=== PATIENT | female | born 1995 | race African-American/Black ===

== ENCOUNTER 2017-05-21 10:25 | Emergency (ER) | payer SELFPAY ==
[2017-05-21 10:30] VITALS: BP 116/67; PULSE 108; TEMP 97.6; BMI 22.3
--- NOTE | 2017-05-21 11:59 | PDOC ---
History of Present Illness - General Chief Complaint: Headache Stated Complaint: HEADACHE Time Seen by Provider: 05/21/17 10:44 History Source: Patient Exam Limitations: No Limitations - History of Present Illness Initial Comments: 05/21/17 11:54 Patient is a 22-year-old female, history of herpes, presents to emergency department for evaluation of painful mass to left external labia and headache since 2 days. Patient denies any trauma, no photophobia, no visual disturbance, no nausea vomiting. No neurosensory deficits. Past Medical History: Denies. Allergies: No known allergies Medications: None Family History: Non-contributory Social History: Denies smoking, alcohol use, or IVDU Review of Systems GENERAL/CONSTITUTIONAL: No fever or chills. No weakness. No weight change. HEAD, EYES, EARS, NOSE AND THROAT: No change in vision. No ear pain or discharge. No sore throat. CARDIOVASCULAR: No chest pain or shortness of breath. RESPIRATORY: No cough, wheezing, or hemoptysis. GASTROINTESTINAL: No nausea, vomiting, diarrhea or constipation. No rectal bleeding. GENITOURINARY: No dysuria, frequency, or change in urination. MUSCULOSKELETAL: No joint or muscle swelling or pain. No neck or back pain. SKIN AND BREASTS: No rash or easy bruising. NEUROLOGIC: No headache, vertigo, loss of consciousness, or loss of sensation. PSYCHIATRIC: No depression or anxiety. ENDOCRINE: No increased thirst. No abnormal weight change. HEMATOLOGIC/LYMPHATIC: No anemia, easy bleeding, or history of blood clots. ALLERGIC/IMMUNOLOGIC: No hives or skin allergy. No latex allergy. Physical Exam: GENERAL: The patient is awake, alert, and fully oriented, in no acute distress. EYES: Pupils equal, round and reactive to light, extraocular movements intact, sclera anicteric, conjunctiva clear. No nystagmus ENT: Ears normal, nares erythematous, with + frontal and ethmoid sinus pressure , oropharynx clear without exudates. Moist mucous membranes. No uvula deviation. NECK: Normal range of motion, supple without lymphadenopathy, JVD, or masses. LUNGS: Breath sounds equal, clear to auscultation bilaterally. No wheezes, and no crackles. HEART: Regular rate and rhythm, normal S1 and S2 without murmur, rub or gallop. ABDOMEN: Soft, nontender, normoactive bowel sounds. No guarding, no rebound. No masses. No bruising or abrasions GENITALIA: Left sided bartholin cyst. MUSCULOSKELETAL: Normal range of motion, no edema. No clubbing or cyanosis. No cords, erythema, or tenderness. No CVA Tenderness with fist palpation. NEUROLOGICAL: Cranial nerves II through XII grossly intact. Normal speech, normal gait. PSYCH: Normal mood, normal affect. SKIN: Warm, Dry, normal turgor, no rashes or lesions noted. Past History - Past Medical History Allergies/Adverse Reactions: Allergies Allergy/AdvReac Type Severity Reaction Status Date / Time benzocaine [From Anbesol] Allergy Swelling Verified 05/21/17 10:28 phenol [From Anbesol] Allergy Swelling Verified 05/21/17 10:28 povidone-iodine Allergy Swelling Verified 05/21/17 10:28 [From Anbesol] Home Medications: Ambulatory Orders NK [No Known Home Medication] 05/21/17 Asthma: No Cancer: No Cardiac Disorders: No Diabetes: No HTN: No Seizures: No Thyroid Disease: No - Psycho/Social/Smoking Cessation Hx Anxiety: No Suicidal Ideation: No Smoking Status: No Smoking History: Never smoked Have you smoked in the past 12 months: No Number of Cigarettes Smoked Daily: 0 Information on smoking cessation initiated: No Hx Alcohol Use: No Drug/Substance Use Hx: No Substance Use Type: None Hx Substance Use Treatment: No *Physical Exam - Vital Signs Last Vital Signs Temp Pulse Resp BP Pulse Ox 97.6 F 108 H 18 116/67 100 05/21/17 10:29 05/21/17 10:29 05/21/17 10:29 05/21/17 10:29 05/21/17 10:29 Procedures - Incision and Drainage I&D Site: Left: Bartholin Betadine cleansed: Yes Anesthesia: 1% Lidocaine Volume(ml): 4 Blade Size: 15 blade Attempts: 1 Progress: 05/21/17 12:02 Word catheter placed i with good result. Large amount of malodorous, pustulant discharge removed. Medical Decision Making - Medical Decision Making A/P : Patient here with headache and Bartholin's cyst, patient with an acute sinusitis. Has not attempted to take any medication for pain, Toradol 60 mg IM times one given with good result headache was resolved patient denies any neurosensory deficits, no visual disturbance, no photophobia. Patient also here with Bartholin's cyst see procedure note to follow up with [facility] or return in 10 days for catheter removal. DC on Augmentin for sinusitis. I discussed the physical exam findings, ancillary test results and final diagnoses with the patient. I answered all of the patient's questions. The patient was satisfied with the care received and felt comfortable with the discharge plan and treatment plan. The patient will call to arrange follow-up and will return to the Emergency Department with any new, persistent or worsening symptoms. *DC/Admit/Observation/Transfer Diagnosis at time of Disposition: Bartholin cyst Sinusitis Qualifiers: Sinusitis location: frontal Chronicity: acute Recurrence: non-recurrent Qualified Code(s): J01.10 - Acute frontal sinusitis, unspecified - Discharge Dispostion Admit: No - Patient Instructions Printed Discharge Instructions: Bartholin Gland Cyst Additional Instructions: Recommend follow up with [facility] next week. Word catheter may be left in place for 10 days or dependant on what your [facility] says. Antibiotics for for sinus infection. Please The patient should wear a peripad to absorb discharge. You should maintain pelvic rest (ie, nothing in the vagina) while the Word catheter is in place. She should call to be examined if she experiences increasing swelling, pain, vaginal discharge, or fever. Use sitz baths and mild analgesics to treat pain, if present during the first postoperative day or two.
[2017-05-21] MEDS ORDERED: KETOROLAC TROMETHAMINE 60 MG/2 ML VIAL IM ONE (12:06)
[2017-05-21] MEDS ORDERED: KETOROLAC TROMETHAMINE 60 MG/2 ML VIAL ONE (12:11)
== END 2017-05-21 12:31 ==
LOC: JERFT 10:25
CPT/HCPCS: 99281-25

== ENCOUNTER 2017-05-23 00:21 | Emergency (ER) | payer SELFPAY ==
--- NOTE | 2017-05-23 00:44 | PDOC ---
Attending Attestation - Resident Resident Name: Rosanna Richards - ED Attending Attestation I have performed the following: I have examined & evaluated the patient, The case was reviewed & discussed with the resident, I agree w/resident's findings & plan - HPI HPI: 05/23/17 01:44 The patient is a 22 year old female with a significant past medical history of herpes and left bartholin gland cyst I&D (05/21), presenting to the Emergency Department with increased pain around her Word catheter. The patient reports that she was seen in the ED 2 days ago for left labia swelling and was diagnosed with a bartholin gland cyst which was then I&D and a Word catheter was placed. She reports that she has not had the catheter removed, and reports pain at the site of the catheter. She states that the pain has become worse over the day, now at a 7/10 in intensity. She admits to IV antibiotics on 05/21, and malodorous vaginal discharge on 05/21. The patient denies dysuria, or urinary changes. Patient denies vaginal bleeding. Patient denies nausea, vomiting, and diarrhea. Patient denies fevers, chills, and cough. GENERAL/CONSTITUTIONAL: No fever or chills. No weakness. HEAD, EYES, EARS, NOSE AND THROAT: No change in vision. No ear pain or discharge. No sore throat. GASTROINTESTINAL: No nausea, vomiting, diarrhea or constipation. GENITOURINARY: + Word catheter, + vaginal pain at left labia. No dysuria, frequency, or change in urination. CARDIOVASCULAR: No chest pain or shortness of breath. RESPIRATORY: No cough, wheezing, or hemoptysis. MUSCULOSKELETAL: No joint or muscle swelling or pain. No neck or back pain. SKIN: No rash NEUROLOGIC: No headache, vertigo, loss of consciousness, or change in strength/ sensation. ENDOCRINE: No increased thirst. No abnormal weight change. HEMATOLOGIC/LYMPHATIC: No anemia, easy bleeding, or history of blood clots. ALLERGIC/IMMUNOLOGIC: No hives or skin allergy. - Medical Decision Making 05/23/17 01:45 Documentation prepared by Hanh Vicente, acting as medical laboratory technicians for Lissa Molina MD. <Hanh Vicente - Last Filed: 05/23/17 01:44> - Resident Resident Name: Rosanna Richards - ED Attending Attestation I have performed the following: I have examined & evaluated the patient, The case was reviewed & discussed with the resident, I agree w/resident's findings & plan, Exceptions are as noted - Physicial Exam PE: GENERAL: Awake, alert, and fully oriented, in no acute distress LUNGS: Breath sounds equal, clear to auscultation bilaterally. No wheezes, and no crackles HEART: Regular rate and rhythm, normal S1 and S2, no murmurs, rubs or gallops ABDOMEN: Soft, nontender, normoactive bowel sounds. No guarding, no rebound. No masses SKIN: Warm, Dry, normal turgor, no rashes or lesions noted. : Word catheter present to L labia. No active drainage from the area, no induration, no erythema. - Medical Decision Making Word catheter removed due to significant patient discomfort. She reports relief. Stable for DC home. <Lissa Molina - Last Filed: 05/23/17 02:30>
--- NOTE | 2017-05-23 01:00 | PDOC ---
History of Present Illness - General Chief Complaint: Pain Stated Complaint: REVISIT Time Seen by Provider: 05/23/17 00:43 History Source: Patient Exam Limitations: No Limitations - History of Present Illness Initial Comments: This is a 22 yo female with h/o Bartholin cyst who presents for wound re-check. She was in the ED yesterday morning for an I&D of her left Bartholin cyst, and she has been having increasing pain at the site of the Word catheter since that time. She notes a 7/10 pressure-like pain to the site which is worsened by walking and sitting. She tried taking Motrin as directed, but this has provided her with no relief. She denies any fever, chills, nausea, vomiting, diarrhea, dysuria, rash, vaginal bleeding, or vaginal discharge. She has not noticed any drainage from the Word catheter since yesterday. She denies any chance that she may be . She originally planned to follow up with her [facility] office early next week, but her pain became too great this evening to tolerate. 05/24/17 17:44 Past History - Past Medical History Allergies/Adverse Reactions: Allergies Allergy/AdvReac Type Severity Reaction Status Date / Time benzocaine [From Anbesol] Allergy Swelling Verified 05/21/17 10:28 phenol [From Anbesol] Allergy Swelling Verified 05/21/17 10:28 povidone-iodine Allergy Swelling Verified 05/21/17 10:28 [From Anbesol] Home Medications: Ambulatory Orders NK [No Known Home Medication] 05/21/17 Asthma: No Cancer: No Cardiac Disorders: No Diabetes: No HTN: No Seizures: No Thyroid Disease: No Other medical history: Pt denies - Psycho/Social/Smoking Cessation Hx Anxiety: No Suicidal Ideation: No Smoking Status: No Smoking History: Never smoked Have you smoked in the past 12 months: No Number of Cigarettes Smoked Daily: 0 Information on smoking cessation initiated: No Hx Alcohol Use: No Drug/Substance Use Hx: No Substance Use Type: None Hx Substance Use Treatment: No Review of Systems - Review of Systems Able to Perform ROS?: Yes Constitutional: No: Chills, Fever, Unexplained wgt Loss HEENTM: No: Nose Congestion, Throat Pain Respiratory: No: Cough, Shortness of Breath Cardiac (ROS): No: Chest Pain, Palpitations ABD/GI: No: Constipated, Diarrhea, Nausea, Vomiting : Yes: Pain. No: Burning, Dysuria Musculoskeletal: No: Back Pain, Neck Pain Integumentary: No: Bruising, Rash Neurological: No: Headache, Numbness, Tingling, Weakness, Dizziness Endocrine: No: Unexplained Weight Gain, Unexplained Weight Loss *Physical Exam - Vital Signs Last Vital Signs Temp Pulse Resp BP Pulse Ox 98.0 F 81 18 101/57 99 05/23/17 00:30 05/23/17 00:30 05/23/17 00:30 05/23/17 00:30 05/23/17 00:30 - Physical Exam General Appearance: Yes: Nourished, Other (well appearing and in no acute distress but sitting in chair leaning off to one side and appears uncomfortable) . No: Apparent Distress HEENT: positive: EOMI, Normal Voice, Hearing Grossly Normal. negative: Scleral Icterus (R), Scleral Icterus (L), Nasal Congestion Neck: positive: Trachea midline, Supple. negative: Tender, Rigid Respiratory/Chest: positive: Lungs Clear, Normal Breath Sounds. negative: Respiratory Distress, Crackles, Rhonchi, Stridor, Wheezing Cardiovascular: positive: Regular Rhythm, Regular Rate. negative: Murmur Female Pelvic Exam: positive: other (mild swelling and tenderness to left labia with Word catheter in place which is tender to light manipulation, minimal drainage noted) Gastrointestinal/Abdominal: positive: Normal Bowel Sounds, Soft. negative: Tender, Organomegaly, Pulsatile Mass, Guarding Musculoskeletal: positive: Normal Inspection. negative: Decreased Range of Motion, Vertebral Tenderness Extremity: positive: Normal Capillary Refill, Normal Inspection, Normal Range of Motion. negative: Tender, Cyanosis Integumentary: positive: Normal Color, Dry, Warm. 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 Medical Decision Making - Medical Decision Making 22 yo female with recent Bartholin cyst I&D p/w Word catheter discomfort. She has tried ibuprofen without relief, has minimal drainage now. Most likely this is simple Word catheter discomfort without further infectious concern. Word catheter is removed as there is minimal further drainage and the patient's pain is relieved. She is appropriate for outpatient management with her [facility]. Return precautions are discussed and the patient will RTED for new/worse sxs. *DC/Admit/Observation/Transfer Diagnosis at time of Disposition: Wound check, abscess - Discharge Dispostion Admit: No - Patient Instructions Printed Discharge Instructions: DI for Bartholin Gland Cyst Additional Instructions: You were seen tonight for a wound re-check of your Bartholin gland abscess because the Word catheter was causing you some discomfort. We did not see a large amount of drainage output from the catheter, and we decided to remove it from the incision site. It looks like you are healing well so far. Please continue to take Motrin as needed for pain, and follow up with your [facility] this week, or return to the emergency room for any new or worsening symptoms. - Attestations Physician Attestion: 05/23/17 01:46 I, Dr. Rosanna Richards, attest that this document has been prepared under my direction and personally reviewed by me in its entirety. I further attest, that it accurately reflects all work, treatment, procedures and medical decision -making performed by me.
[2017-05-23 01:07] VITALS: BP 101/57; PULSE 81; TEMP 98; BMI 24.7
== END 2017-05-23 01:55 ==
LOC: JER 00:21
CPT/HCPCS: 99281-25

== ENCOUNTER 2018-10-21 12:15 | Emergency (ER) | payer SELFPAY ==
[2018-10-21 12:21] VITALS: BP 101/64; PULSE 86; TEMP 98.4; BMI 25.7
--- NOTE | 2018-10-21 13:28 | PDOC ---
History of Present Illness - General Chief Complaint: Abscess Boil Stated Complaint: ABSCESS BOIL Time Seen by Provider: 10/21/18 12:57 History Source: Patient Exam Limitations: No Limitations - History of Present Illness Travel History: No Timing/Duration: reports: constant Quality: reports: mild Past History - Travel Traveled outside of the country in the last 30 days: No Close contact w/someone who was outside of country & ill: No - Past Medical History Allergies/Adverse Reactions: Allergies Allergy/AdvReac Type Severity Reaction Status Date / Time benzocaine [From Anbesol] Allergy Swelling Verified 10/21/18 12:19 phenol [From Anbesol] Allergy Swelling Verified 10/21/18 12:19 povidone-iodine Allergy Swelling Verified 10/21/18 12:19 [From Anbesol] Home Medications: Ambulatory Orders NK [No Known Home Medication] 05/21/17 Asthma: No Cancer: No Cardiac Disorders: No COPD: No Diabetes: No HTN: No Seizures: No Thyroid Disease: No - Immunization History Immunization Up to Date: Yes - Suicide/Smoking/Psychosocial Hx Smoking Status: No Smoking History: Never smoked Have you smoked in the past 12 months: No Number of Cigarettes Smoked Daily: 0 Hx Alcohol Use: No Drug/Substance Use Hx: No Substance Use Type: None Hx Substance Use Treatment: No Review of Systems - Review of Systems Able to Perform ROS?: Yes Is the patient limited Romansh proficient: Yes Constitutional: Yes: Symptoms Reported, See HPI, Malaise HEENTM: No: Symptoms Reported ABD/GI: Yes: Symptoms Reported, See HPI. No: Vomiting : Yes: Symptoms Reported, See HPI, Pain, Lesions Musculoskeletal: No: Symptoms Reported Integumentary: Yes: Symptoms Reported, See HPI, Erythema, Lesions Neurological: No: Symptoms reported All Other Systems: Reviewed and Negative *Physical Exam - Vital Signs Last Vital Signs Temp Pulse Resp BP Pulse Ox 98.4 F 86 16 101/64 99 10/21/18 12:19 10/21/18 12:19 10/21/18 12:19 10/21/18 12:19 10/21/18 12:19 - Physical Exam General Appearance: Yes: Nourished, Appropriately Dressed, Apparent Distress, Mild Distress HEENT: positive: SANYA, Normal ENT Inspection, TMs Normal, Pharynx Normal Neck: positive: Supple. negative: Tender, Lymphadenopathy (R), Lymphadenopathy (L) Respiratory/Chest: positive: Lungs Clear Female Pelvic Exam: positive: lesions (with erythema and tenderness), Bartholin mass Gastrointestinal/Abdominal: positive: Soft. 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, Fully Oriented, Alert, Normal Mood/ Affect, Normal Response Moderate Sedation - Procedure Monitoring Vital Signs: Procedure Monitoring Vital Signs Temperature 98.4 F 10/21/18 12:19 Pulse Rate 86 10/21/18 12:19 Respiratory Rate 16 10/21/18 12:19 Blood Pressure 101/64 10/21/18 12:19 O2 Sat by Pulse Oximetry (%) 99 10/21/18 12:19 Procedures - Incision and Drainage I&D Site: Left: Bartholin (5 cm x 3 cm fluctuant cyst) Betadine cleansed: Yes (,) Anesthesia: 1% Lidocaine Blade Size: 11 Iodinated Packin/ in Complications: none Dressing: Yes Progress Note - Progress Note Progress Note: Bicillin cyst incised and drained large amount of purulent drainage. Patient tolerated well and feels much improved *DC/Admit/Observation/Transfer Diagnosis at time of Disposition: Bartholin cyst - Discharge Dispostion Disposition: HOME Condition at time of disposition: Stable Decision to Admit order: No - Referrals Referrals: Rush Eubanks MD [Primary Care Provider] - - Patient Instructions Printed Discharge Instructions: DI for Incision and Drainage of a Skin Abscess Additional Instructions: Rest, keep area elevated. Avoid strenuous activity or exercise until wound is healed Use hot soaks to area to bring more blood to the surface and encourage drainage May change dressings as needed to keep clean - trying to avoid removal of packing for 2 days. If packing needs to be changed, return to emergency department or with your followup physician for wound care and evaluation and repacking as needed If packing needs to be removed, then in 2 days, while in the shower remove dressing and quickly pull the packing taken out. Allow water from shower to wash area thoroughly for 2-3 minutes, and pat dry upon exit of shower and replace dressing. Change his dressing daily until the wound is completely healed. May use Tylenol or Motrin for mild pain relief Use stronger medications as directed and prescribed Followup with private physician in 2-3 days for wound check Return to emergency Department for worsening swelling, pain, redness, fevers as needed - Post Discharge Activity Forms/Work/School Notes: Back to Work
== END 2018-10-21 14:06 | disposition home or self-care (01) ==
LOC: JERFT 12:15
PROC: 0U9L0ZZ Drainage of Vestibular Gland, Open Approach (ICD-10-PCS; principal; 2018-10-21)
DX: N75.1 Abscess of Bartholin's gland (principal); N75.0 Cyst of Bartholin's gland
CPT/HCPCS: 99281-25

== ENCOUNTER 2019-04-30 08:12 | Emergency (ER) | payer OTHER ==
[2019-04-30 08:29] VITALS: BP 116/69; PULSE 114; TEMP 98.9; BMI 27.4
[2019-04-30] MEDS ORDERED: MECLIZINE HCL 25 MG TABLET (FP) PO ONE (08:44)
[2019-04-30] MEDS ORDERED: KETOROLAC TROMETHAMINE 60 MG/2 ML VIAL IM ONE (08:44)
[2019-04-30] MEDS ORDERED: KETOROLAC TROMETHAMINE 60 MG/2 ML VIAL ONE (08:45)
[2019-04-30] MEDS ORDERED: MECLIZINE HCL 25 MG TABLET (FP) ONE (08:47)
[2019-04-30] MEDS ORDERED: ONDANSETRON *ODT* 4 MG TABLET SL ONE (08:53)
--- NOTE | 2019-04-30 08:53 | PDOC ---
History of Present Illness - General Chief Complaint: Headache Stated Complaint: HEADACHE/DIZZINESS Time Seen by Provider: 04/30/19 08:41 History Source: Patient Exam Limitations: Clinical Condition - History of Present Illness Initial Comments: 04/30/19 09:18 Patient with no significant past medical history present with complaint of 4 day history of headache with nausea and spinning sensation which is worse from getting up from laying position. Patient also reported abscess to left vulvar area which has been worsening for 3 days now. Denies fever, chills, vomiting, chest pain, shortness of breath. Patient did not take anything for symptoms. Patient reported having multiple abscesses in the past and was told by [employer] procedure needed to be done to prevent recurrent abscess but needing your [employer] to follow-up. Denies any other symptoms Timing/Duration: other (4 days) Past History - Past Medical History Allergies/Adverse Reactions: Allergies Allergy/AdvReac Type Severity Reaction Status Date / Time benzocaine [From Anbesol] Allergy Swelling Verified 04/30/19 08:26 phenol [From Anbesol] Allergy Swelling Verified 04/30/19 08:26 Home Medications: Ambulatory Orders Cephalexin Monohydrate [Keflex -] 500 mg PO BID 7 Days #14 capsule 04/30/19 Ibuprofen 800 mg PO Q8H PRN #20 tablet 04/30/19 Meclizine HCl [Antivert -] 25 mg PO Q8H PRN #21 tablet 04/30/19 Sulfamethoxazole/Trimethoprim [Bactrim Ds -] 1 tab PO BID #14 tablet 04/30/19 Asthma: No Cancer: No Cardiac Disorders: No COPD: No Diabetes: No HTN: No Seizures: No Thyroid Disease: No - Immunization History Immunization Up to Date: Yes - Suicide/Smoking/Psychosocial Hx Smoking Status: No Smoking History: Never smoked Have you smoked in the past 12 months: No Number of Cigarettes Smoked Daily: 0 Hx Alcohol Use: No Drug/Substance Use Hx: No Substance Use Type: None Hx Substance Use Treatment: No Review of Systems - Review of Systems Able to Perform ROS?: Yes Is the patient limited Cymraes proficient: No Constitutional: No: Chills, Fever, Weakness HEENTM: Yes: Symptoms Reported, See HPI, Recent change in vision (spinning sensation). No: Eye Pain, Blurred Vision, Tearing, Double Vision, Cataracts, Ear Pain, Ocular Prothesis, Ear Discharge, Nose Pain, Nose Congestion, Tinnitus , Nose Bleeding, Hearing Loss, Throat Pain, Throat Swelling, Mouth Pain, Dental Problems, Difficulty Swallowing, Mouth Swelling, Other Respiratory: No: Symptoms reported, See HPI, Cough, Orthopnea, Shortness of Breath, SOB with Exertion, SOB at Rest, Stridor, Wheezing, Productive cough, Hemoptysis, Other Cardiac (ROS): No: Symptoms Reported, See HPI, Chest Pain, Edema, Irregular Heart Rate, Lightheadedness, Palpitations, Syncope, Chest Tightness, Other ABD/GI: Yes: Symptoms Reported, See HPI, Nausea. No: Abdominal Distended, Blood Streaked Bowels, Constipated, Diarrhea, Vomiting, Abdominal cramping : No: Symptoms Reported Integumentary: Yes: Symptoms Reported, See HPI, Lumps (vulva abscess) Neurological: Yes: Symptoms reported, See HPI, Headache, Dizziness (spinning sensation). No: Numbness, Paresthesia, Pre-Existing Deficit, Seizure, Tingling , Weakness, Unsteady Gait, Ataxia All Other Systems: Reviewed and Negative *Physical Exam - Vital Signs Last Vital Signs Temp Pulse Resp BP Pulse Ox 98.9 F 114 H 18 116/69 99 04/30/19 08:28 04/30/19 08:28 04/30/19 08:28 04/30/19 08:28 04/30/19 08:28 - Physical Exam General Appearance: Yes: Nourished, Appropriately Dressed. No: Apparent Distress HEENT: positive: EOMI, SANYA, Normal ENT Inspection, Normal Voice, TMs Normal Neck: positive: Supple Respiratory/Chest: positive: Lungs Clear, Normal Breath Sounds. negative: Respiratory Distress, Accessory Muscle Use Cardiovascular: positive: Regular Rhythm, Regular Rate. negative: Murmur Female Pelvic Exam: positive: normal adnexa, Bartholin mass (6cm left vulva fluctauant abscess). negative: CMT, adnexal tenderness, vaginal bleeding Gastrointestinal/Abdominal: positive: Normal Bowel Sounds, Flat, Soft. negative : Tender Musculoskeletal: positive: Normal Inspection. negative: CVA Tenderness Integumentary: positive: Normal Color, Swelling (6cm fluctuant vulva abscess. no skin erythema. no drainage from site) Neurologic: positive: landscape designer II-XII NML intact, Fully Oriented, Alert, Normal Mood/ Affect, Normal Response, Motor Strength 5/5, Finger to Nose. negative: Facial Droop, Sensory Deficit, Confused, Disoriented, Babinski Procedures - Incision and Drainage I&D Site: Left: Vin (6cm vulva abscess) Betadine cleansed: Yes Anesthesia: 1% Lidocaine Volume(ml): 2 Blade Size: 11 Plain Packing: No Complications: none Dressing: Yes Medical Decision Making - Medical Decision Making 04/30/19 09:20 Patient with no significant past medical history present with complaint of 4 day history of headache with nausea and spinning sensation which is worse from getting up from laying position. Patient also reported abscess to left vulvar area which has been worsening for 3 days now. Denies fever, chills, vomiting, chest pain, shortness of breath. Patient did not take anything for symptoms. Patient reported having multiple abscesses in the past and was told by [employer] procedure needed to be done to prevent recurrent abscess but needing your [employer] to follow-up. Denies any other symptoms Normal neuro exam on clinical exam. Clinical exam significant for 6 cm fluctuant abscess to left vulvar area overlying labia majora. No skin erythema. No drainage from site. I and D of vulvar abscess done by YOLANDA Garcia reported purulent drainage obtained from abscess. Wound culture obtained. Patient be discharged home on Keflex and Bactrim antibiotics with advised to do warm compresses with [employer] follow-up in 2- 3 days for reassessment. Patient be discharged home on fioricet and meclizine take as needed for headaches. *DC/Admit/Observation/Transfer Diagnosis at time of Disposition: Vertigo, Nausea alone, Vulvar abscess - Discharge Dispostion Disposition: HOME Condition at time of disposition: Stable Decision to Admit order: No - Prescriptions Prescriptions: Cephalexin Monohydrate [Keflex -] 500 mg PO BID 7 Days #14 capsule Ibuprofen 800 mg PO Q8H PRN #20 tablet PRN Reason: pain Meclizine HCl [Antivert -] 25 mg PO Q8H PRN #21 tablet PRN Reason: dizziness Sulfamethoxazole/Trimethoprim [Bactrim Ds -] 1 tab PO BID #14 tablet - Referrals Referrals: Kavon Jennings MD [Staff Physician] - - Patient Instructions Printed Discharge Instructions: Vulvar Abscess Additional Instructions: Take prescribed medication as prescribed. Apply hot compresses to abscess area 2 -3 times a day as needed for swelling. Follow-up referred [employer] in 2-3 days for reassessment - Post Discharge Activity
[2019-04-30] MEDS ORDERED: ONDANSETRON *ODT* 4 MG TABLET ONE (08:54)
== END 2019-04-30 09:39 | disposition home or self-care (01) ==
LOC: JERFT 08:12
PROC: 0U9MXZZ Drainage of Vulva, External Approach (ICD-10-PCS; principal; 2019-04-30)
DX: N76.4 Abscess of vulva (principal); R42 Dizziness and giddiness; R11.0 Nausea
CPT/HCPCS: 87070; 87186; 87205; 99281-25; Q0162

== ENCOUNTER 2019-05-08 08:55 | Day surgery (SDC) | payer OTHER ==
[2019-05-07 16:48] VITALS: BMI 27.4
[2019-05-08] MEDS ORDERED: fentaNYL CITRATE 250 MCG/5 ML VIAL ONE (09:51)
[2019-05-08] MEDS ORDERED: PROPOFOL 20 ML ONE (09:52)
[2019-05-08] MEDS ORDERED: MIDAZOLAM HCL 2 MG/2 ML SINGLE DOSE VIAL ONE (09:52)
[2019-05-08] MEDS ORDERED: ceFAZolin SODIUM 1 GM VIAL ONE (10:04)
[2019-05-08] MEDS ORDERED: ceFAZolin SODIUM 1 GM VIAL IVPB ONE (10:04)
[2019-05-08] MEDS ORDERED: DEXAMETHASONE SOD PHOSPHATE 4 MG/1 ML VIAL ONE (10:07)
[2019-05-08] MEDS ORDERED: KETOROLAC TROMETHAMINE 30 MG/1 ML VIAL ONE (10:07)
[2019-05-08] MEDS ORDERED: PROMETHAZINE HCL 25 MG/1 ML VIAL IVPB PRN (10:40)
[2019-05-08] MEDS ORDERED: ONDANSETRON 4 MG/2 ML VIAL IVPUSH PRN (10:40)
[2019-05-08] MEDS ORDERED: oxyCODONE HCL 5 MG TABLET PO PRN (10:40)
[2019-05-08] MEDS ORDERED: LACTATED RINGERS SOLUTION 1,000 ML IV SCH (10:45)
--- NOTE | 2019-05-08 10:52 | OP ---
Operative Note - Note: Operative Date: 05/08/19 Pre-Operative Diagnosis: Bartholin's gland cyst/abscess Operation: Marsupialization Findings: left sided abscess Surgeon: Tyrel Strong Anesthesia: General Specimens Removed: cyst wall Estimated Blood Loss (mls): 5 Drains & Tubes with Location: iodophorm gauze packing Operative Report Dictated: Yes
--- NOTE | 2019-05-08 11:19 | OP ---
DATE OF OPERATION: DATE OF DICTATION: 05/08/2019 PREOPERATIVE DIAGNOSIS: Left-sided Bartholin gland cyst/abscess. POSTOPERATIVE DIAGNOSIS: Left-sided Bartholin gland cyst/abscess. OPERATION: Drainage of abscess, marsupialization of Bartholin gland, iodoform packing. SURGEON: Ligia Sarah MD ANESTHESIOLOGIST: Pepito Bennett MD ANESTHESIA: General LMA. PROCEDURE AND FINDINGS: Under light general anesthesia and in dorsal lithotomy position, patient was examined, and routine prep with Betadine and drape were carried out. Left-sided abscess was identified. The patient had a small, spontaneous rupture on the medial side of the abscess, the lower part of vaginal mucosa. This already took place, so marsupialization was carried out at that area. Using hemostat, cavity was entered, and purulent material was drained. Cultures were obtained. Cavity was opened and made sure there were no adhesions. Using Metzenbaum scissors, oval-shaped incision was placed on the mucosa removing part of the wall of the Bartholin gland. Using Biosyn 2-0 interrupted sutures, edges were secured creating new opening. Hemostasis was excellent. Narrow strip of iodoform gauze was then placed in the cavity preventing from collapsing. Patient withstood the procedure very well and had no problems with either anesthesia or surgery. Total blood loss was 5 mL of less. Patient was then awakened and transferred to the PACU comfortable and stable. MD RAJINDER KINSEY/[id number]
[2019-05-08 13:21] VITALS: BP 135/69; PULSE 74; TEMP 98.2
--- NOTE | 2019-05-09 20:25 | PATH ---
Surgical Pathology Report Patient Name: MISTY KRISHNAMURTHY [facility]. Rec. #: [id number] /Age/Gender: 1995 (Age: 24) / F Account: [id number] Location: [facility] SURGICAL Taken: 05/08/2019 Received: 05/08/2019 Reported: 05/09/2019 Physicians: Tyrel Strong MD Specimen(s) Received PORTION OF BARTHOLIN CYST WALL Clinical History Bartholin's cyst Final Diagnosis BARTHOLIN CYST WALL, PORTION, MARSUPIALIZATION: SQUAMOUS MUCOSA WITH MARKED ACUTE INFLAMMATION AND ABSCESS FORMATION. Electronically Signed Lola Curry M.D. Gross Description Received in formalin labeled "portion of Bartholin's wall," is a 0.9 x 0.4 cm kuhn, irregular, unoriented portion of possible skin excised to a depth of 0.3 cm. Also received within the same container is a 0.4 x 0.3 x 0.1 cm portion of kuhn soft tissue. The skin is trisected and the specimen is entirely submitted in one cassette. /05/08/201905/08/2019
== END 2019-05-08 13:26 | disposition home or self-care (01) ==
LOC: JASU-SURG 08:55
PROVIDERS: ATTEND Specialist
PROC: 0U9L0ZZ Drainage of Vestibular Gland, Open Approach (ICD-10-PCS; principal; 2019-05-08 10:30)
DX: N75.0 Cyst of Bartholin's gland (principal); N75.1 Abscess of Bartholin's gland
CPT/HCPCS: 84703; 88304-TC; 94760

== ENCOUNTER 2021-07-05 21:14 | Emergency (ER) | payer OTHER ==
[2021-07-05 21:24] VITALS: BMI 29.2
[2021-07-05] MEDS ORDERED: LACTATED RINGERS SOLUTION 1000 ML INFUS.BAG IV ONE (22:58)
[2021-07-05 23:42] LABS: BASO % 0.3 % (0-2.0); EOS % 0.8 % (0-4.5); HEMATOCRIT 39.3 % (32.4-45.2); HEMOGLOBIN 13.3 GM/dL (10.7-15.3); MCHC 33.9 g/dl (32.0-36.0); MEAN CELL VOLUME 88.6 fl (80-96); MEAN PLT VOLUME 10.3 fl (7.5-11.1); MONO % 8.8 % (3.8-10.2); NEUT % 40.1 % (42.8-82.8); PLATELET COUNT 237 10^3/uL (134-434); RBC 4.44 M/mm3 (3.60-5.2); RDW 13.6 % (11.6-15.6); WHITE BLOOD COUNT 6.8 K/mm3 (4.0-10.0)
[2021-07-06 00:03] LABS: CALCIUM 8.8 mg/dL (8.5-10.1)
[2021-07-06 00:04] LABS: ALBUMIN 3.8 g/dl (3.4-5.0); BLOOD UREA NITROGEN 11.5 mg/dL (7-18)
[2021-07-06 00:07] LABS: CREATININE 0.9 mg/dL (0.55-1.3)
[2021-07-06 00:08] LABS: BILIRUBIN,TOTAL 0.4 mg/dL (0.2-1)
[2021-07-06 00:09] LABS: TOT PROT 7.5 g/dl (6.4-8.2)
[2021-07-06 00:41] LABS: EPI CELLS 18 /uL (0-25.1); HYALINE CASTS 0 /uL (0-3.1); PH,URINE 5.5 (5.0-8.0); URINE APPEARANCE CLEAR; URINE BACTERIA 364 /uL (0-1359); URINE BILIRUBIN NEGATIVE (NEGATIVE); URINE COLOR YELLOW; URINE GLUCOSE (UA) NEGATIVE (NEGATIVE); URINE KETONE NEGATIVE (NEGATIVE); URINE LEUK ESTERASE TRACE (NEGATIVE); URINE NITRITE NEGATIVE (NEGATIVE); URINE PROTEIN NEGATIVE (NEGATIVE); URINE RBC 7 /uL (0-23.9); URINE WBC 37 /uL (0-25.8)
[2021-07-06 00:54] LABS: HCG,QUALITATIVE URINE Negative
[2021-07-06 01:15] VITALS: BP 129/79; PULSE 85; TEMP 98.3
== END 2021-07-06 01:15 | disposition home or self-care (01) ==
LOC: JER 21:14
DX: R42 Dizziness and giddiness (principal)
CPT/HCPCS: 36415; 80053; 81003; 84703; 85025; 93005; 93010; 99284-25

== ENCOUNTER 2022-03-20 17:14 | Emergency (ER) | payer OTHER ==
[2022-03-20 17:23] VITALS: BMI 32.0
[2022-03-20 17:59] VITALS: BP 107/69; PULSE 99; TEMP 98.7
[2022-03-20] MEDS ORDERED: ACETAMINOPHEN 500 MG TABLET (FP) ONE (18:11)
[2022-03-20] MEDS ORDERED: ACETAMINOPHEN 500 MG TABLET (FP) PO ONE (18:30)
== END 2022-03-20 18:30 | disposition home or self-care (01) ==
LOC: JER 17:14
DX: O26.892 Other specified pregnancy related conditions, second trimester (principal); R51.9 Headache, unspecified; Z3A.21 21 weeks gestation of pregnancy
CPT/HCPCS: 99283-25

== ENCOUNTER 2022-07-26 10:00 | Inpatient (IN) | payer OTHER ==
[2022-07-26 11:23] VITALS: BMI 32.9
[2022-07-26] MEDS ORDERED: ELECTROLYTE-148 SOLN 500 ML IV ONE (12:07)
[2022-07-26] MEDS ORDERED: CITRIC ACID/SODIUM CITRATE 30 ML UNIT-DOSE CUP PO ONE (12:07)
[2022-07-26] MEDS ORDERED: DOCUSATE SODIUM 100 MG CAPSULE (FP) PO PRN (14:30)
[2022-07-26] MEDS ORDERED: ONDANSETRON 4 MG/2 ML VIAL IVPUSH PRN ×2 (14:30)
[2022-07-26] MEDS ORDERED: BISACODYL 5 MG TABLET.DR (FP) PO PRN (14:30)
[2022-07-26] MEDS ORDERED: OXYTOCIN 20 UNITS in 0.9% NS 20 UNIT/1,000 ML INFUS.BAG IV ONE (15:20)
[2022-07-26] MEDS: ACETAMINOPHEN 1000 MG/100 ML BAG IVPB SCH (21:14)
[2022-07-26] MEDS: IBUPROFEN 800 MG/8 ML IJ IVPB SCH (23:27)
[2022-07-26] MEDS: SODIUM CHLORIDE 1,000 ML IV SCH (23:27)
[2022-07-27] MEDS: ACETAMINOPHEN 1000 MG/100 ML BAG IVPB SCH ×2 (03:03→09:38)
[2022-07-27] MEDS: IBUPROFEN 800 MG/8 ML IJ IVPB SCH ×3 (06:29→23:00)
[2022-07-27 08:41] LABS: HEMATOCRIT 28.7 % (32.4-45.2); HEMOGLOBIN 9.6 GM/dL (10.7-15.3); MCH 28.5 pg (25.7-33.7); MCHC 33.3 g/dl (32.0-36.0); MEAN CELL VOLUME 85.4 fl (80-96); MEAN PLT VOLUME 10.2 fl (7.5-11.1); PLATELET COUNT 196 10^3/uL (134-434); RBC 3.36 M/mm3 (3.60-5.2); RDW 14.2 % (11.6-15.6); WHITE BLOOD COUNT 14.5 K/mm3 (4.0-10.0)
[2022-07-27 09:10] LABS: BLOOD UREA NITROGEN 5.7 mg/dL (7-18); CALCIUM 8.1 mg/dL (8.5-10.1)
[2022-07-27 09:14] LABS: CREATININE 0.7 mg/dL (0.55-1.3)
[2022-07-27] MEDS: PRENATAL VITAMINS W/ FOLIC ACID TABLET (FP) PO SCH (09:40)
[2022-07-27] MEDS: CALCIUM (OYSTER SHELL) 500 MG TABLET (FP) PO SCH (10:22)
[2022-07-27] MEDS: SIMETHICONE 80 MG TAB.CHEW (FP) PO PRN (21:51)
[2022-07-27] MEDS: ACETAMINOPHEN 500 MG TABLET (FP) PO SCH (21:51)
[2022-07-28] MEDS: SIMETHICONE 80 MG TAB.CHEW (FP) PO PRN ×2 (03:01→18:27)
[2022-07-28] MEDS: ACETAMINOPHEN 500 MG TABLET (FP) PO SCH ×4 (03:01→21:08)
[2022-07-28] MEDS: IBUPROFEN 600 MG TABLET (FP) PO PRN ×2 (06:54→18:27)
[2022-07-28] MEDS: oxyCODONE HCL 5 MG TABLET PO PRN ×2 (08:13→22:20)
[2022-07-28] MEDS: CALCIUM (OYSTER SHELL) 500 MG TABLET (FP) PO SCH (09:42)
[2022-07-28] MEDS: PRENATAL VITAMINS W/ FOLIC ACID TABLET (FP) PO SCH (09:42)
[2022-07-28] MEDS ORDERED: oxyCODONE HCL 5 MG TABLET PO PRN (11:13)
[2022-07-29] MEDS: ACETAMINOPHEN 500 MG TABLET (FP) PO SCH ×4 (03:04→21:12)
[2022-07-29] MEDS: PRENATAL VITAMINS W/ FOLIC ACID TABLET (FP) PO SCH (09:52)
[2022-07-29] MEDS: CALCIUM (OYSTER SHELL) 500 MG TABLET (FP) PO SCH (16:02)
[2022-07-29] MEDS: SIMETHICONE 80 MG TAB.CHEW (FP) PO PRN (16:03)
[2022-07-29] MEDS: SODIUM CHLORIDE 1,000 ML IV SCH ×3 (21:07→21:09)
[2022-07-29 22:59] VITALS: RESP 18
[2022-07-30] MEDS: ACETAMINOPHEN 500 MG TABLET (FP) PO SCH ×3 (03:24→14:19)
[2022-07-30] MEDS: CALCIUM (OYSTER SHELL) 500 MG TABLET (FP) PO SCH (09:29)
[2022-07-30] MEDS: PRENATAL VITAMINS W/ FOLIC ACID TABLET (FP) PO SCH (09:29)
[2022-07-30 10:27] VITALS: BP 108/72; PULSE 87; TEMP 98.7
== END 2022-07-30 16:30 | disposition home or self-care (01) | DRG 788 ==
LOC: JLDR 10:00 → J3W 16:00
PROVIDERS: ADMIT Specialist; ATTEND Specialist
PROC: 10D00Z1 Extraction of Products of Conception, Low, Open Approach (ICD-10-PCS; principal; 2022-07-26)
DX: O34.211 Maternal care for low transverse scar from previous cesarean delivery (principal); O77.0 Labor and delivery complicated by meconium in amniotic fluid; O69.1XX0 Labor and delivery complicated by cord around neck, with compression, not applicable or unspecified; Z3A.39 39 weeks gestation of pregnancy; Z37.0 Single live birth
CPT/HCPCS: 36415; 80048; 85027; 86850; 86900; 86901; 88307-TC; 94010